=== PATIENT | female | born 1950 | race Caucasian/White ===

== ENCOUNTER 2018-02-01 20:14 | Observation (INO) | payer MEDICARE, OTHER ==
--- NOTE | 2018-02-01 20:51 | CT ---
CT OF THE BRAIN WITHOUT CONTRAST: 02/01/18 INDICATION: Syncopal episode. COMPARISON: Prior exam dated 04/08/15. FINDINGS: There is moderate chronic small vessel white matter ischemic change which is stable. Septum pellucidu m and third ventricle are midline. No acute infarct, hemorrhage, or hydrocephalus is present. Mastoid air cell and paranasal sinuses are clear. IMPRESSION: No acute intracranial abnormality. POS: [facility]
--- NOTE | 2018-02-01 21:00 | RAD ---
CHEST ONE VIEW 02/01/18 INDICATION: Syncopal episode. COMPARISON: None. FINDINGS: Lungs are hyperinflated with interstitial prominence likely related to changes of underlying COPD. He art size is within normal limits. No pleural effusion or pneumothorax is evident. IMPRESSION: COPD changes. No definite acute abnormality. POS: [facility]
[2018-02-01 21:23] LABS: #Basophils 0.1 thou/uL (0.0-0.2); #Monocytes 0.5 thou/uL (0.11-0.59); #Neutrophils 5.9 thou/uL (1.40-6.50); %Basophils 0.8 % (0.0-1.0); %Eosinophils 0.6 % (0.0-10.0); %Lymphocytes 12.8 % (21.0-51.0); %Neutrophils 79.7 % (42.0-75.0); Hemoglobin 15.8 g/dL (12.0-16.0); Mean Corpuscular HGB CONC 33.7 g/dL (32.0-36.0); Mean Corpuscular Hemoglobin 34.2 pg (27.0-31.0); Mean Platelet Volume 7.2 fL (7.4-10.4); Platelet Count 215 thou/uL (130-400); RBC Distribution Width 12.2 % (11.5-14.5); Red Blood Cell (RBC) Count 4.63 mill/uL (4.20-5.40); White Blood Cell (WBC) Count 7.4 thou/uL (4.8-10.8)
[2018-02-01 21:43] LABS: ALT (SGPT) Less than 7 U/L (8-55); AST (SGOT) 18 U/L (5-34); Albumin 4.1 g/dL (3.4-4.8); Alcohol 36 mg/dL (Less than 10); Alkaline Phosphatase 82 U/L (40-150); Anion Gap 11 mmol/L (10-20); BUN (Urea Nitrogen) 15 mg/dL (9.8-20.1); Bilirubin, Total 0.4 mg/dL (0.2-1.2); CK (CPK) 53 U/L (29-168); Calc. Creatinine Clearance 0 mL/min (70-130); Calcium 9.6 mg/dL (7.8-10.44); Carbon Dioxide 26 mmol/L (23-31); Chloride 104 mmol/L (98-107); Estimated GFR-MDRD 73; Globulin 2.8 g/dL (2.4-3.5); Glucose 84 mg/dL (80-115); Potassium 3.5 mmol/L (3.5-5.1); Protein, Total 6.9 g/dL (6.0-8.3); Sodium 137 mmol/L (136-145)
[2018-02-01 21:47] LABS: CKMB 1.7 ng/mL (0-6.6); Troponin I Less than 0.010 ng/mL (< 0.028)
[2018-02-01] MEDS ORDERED: Acetaminophen 325 MG TAB PO PRN (22:42)
[2018-02-01] MEDS ORDERED: Guaifenesin DM 100-10/5 ML UDCUP PO PRN (22:42)
[2018-02-01] MEDS ORDERED: Sodium Chloride 0.9% 1,000 ML IV SCH (22:45)
[2018-02-01 23:36] VITALS: BMI 27.1
[2018-02-02 00:36] LABS: Folate (Folic Acid) 8.6 ng/mL (7.0-31.4)
[2018-02-02 01:25] LABS: Troponin I Less than 0.010 ng/mL (< 0.028)
--- NOTE | 2018-02-02 04:11 | HP ---
REASON FOR ADMISSION: Syncope. HISTORY OF PRESENT ILLNESS: Please note, this history is obtained by patient's family at bedside who were with her in a restaurant when she passed out. The patient was eating her dinner. She suddenly felt weak and the next thing was her face was down on the table. The patient had lost consciousness for nearly two minutes. She started to wake up, but was still confused. Around 10 minutes or so later, the patient was fully awake, oriented, and started to ambulate. No complaints of chest pain, palpitations, PND, or orthopnea. No complaints of any specific weakness in any of the extremities. The patient felt a little queasiness in her stomach, but no diarrhea or urinary frequency or urgency. No history of fever. She has had a stress test done in 2013, which was normal per patient. PAST MEDICAL AND SURGICAL HISTORY: History of hypertension, hysterectomy, tonsillectomy. CURRENT MEDICATIONS: The patient is on Norvasc 5 mg daily, metoprolol 12.5 mg daily, aspirin 81 mg daily. ALLERGIES: No known drug allergies. PERSONAL HISTORY: Smokes one pack a day and has been doing so for the last 30 years. Does not abuse excessive alcohol or drugs. FAMILY HISTORY: Mother at the age of 83 years. She has had history of cardiac disease and stroke. Father of HI at the age of 72 years. She has had an older sister who has history of HI and stroke. CODE STATUS: FULL. This was discussed with patient at bedside. REVIEW OF SYSTEMS: The following complete review of systems was negative, unless otherwise mentioned in the HPI or below: Constitutional: Weight loss or gain, ability to conduct usual activities. Skin: Rash, itching. Eyes: Double vision, pain. ENT/Mouth: Nose bleeding, neck stiffness, pain, tenderness. Cardiovascular: Palpitations, dyspnea on exertion, orthopnea. Respiratory: Shortness of breath, wheezing, cough, hemoptysis, fever or night sweats. Gastrointestinal: Poor appetite, abdominal pain, heartburn, nausea, vomiting, constipation, or diarrhea. Genitourinary: Urgency, frequency, dysuria, nocturia. Musculoskeletal: Pain, swelling. Neurologic/Psychiatric: Anxiety, depression. Allergy/Immunologic: Skin rash, bleeding tendency. PHYSICAL EXAMINATION: GENERAL: The patient is a 67-year-old female who is currently not in any acute distress. VITAL SIGNS: Blood pressure 126/66, pulse 66 per minute, respiratory rate 18 per minute, saturating 97% on room air, temperature is 98.4 degrees Fahrenheit. NECK: Supple. No elevated JVD. HEENT: Eyes: Extraocular muscles intact. Pupils reacting to light. Oral cavity: Mucous membranes are dry. No exudates or congestion. CARDIOVASCULAR SYSTEM: S1, S2 heard. Regular rhythm. RESPIRATORY SYSTEM: Air entry 1+ bilateral. Scattered rhonchi plus no rales or wheezes. ABDOMEN: Soft, bowel sounds heard. No tenderness, rigidity, or guarding. EXTREMITIES: No peripheral edema or calf tenderness. VASCULAR SYSTEM: Peripheral pulses 1+ bilateral, no ischemic ulcerations or gangrene. CENTRAL NERVOUS SYSTEM: No gross focal deficits noted. Patient is alert, awake , oriented well. PSYCHIATRIC: The patient's mood is euthymic. No hallucinations or delusions. LABORATORY AND X-RAY FINDINGS: Chest x-ray done shows no acute infiltrate. There are changes of COPD seen. CT brain shows moderate chronic small vessel white matter ischemic changes, no acute infarct, hemorrhage, or hydrocephalus is seen. Electrolytes are stable. BUN 15, creatinine 0.7, serum glucose 84. Liver enzymes within normal limits. First set of cardiac enzymes are negative. Albumin is 4.1. Plasma alcohol is 36. White count of 7, H and H 15 and 46, platelet count 215, MCV is 101 with 79% neutrophils. EKG done shows normal sinus rhythm at 62 beats per minute. There is chronic RBBB seen. CLINICAL IMPRESSION AND PLAN: The patient will be under observation on telemetry for an episode of syncope, which was witnessed. This lasted for nearly two minutes. We will obtain orthostatic blood pressures. She will also be on normal saline at 80 mL per hour. We will place her on full-dose aspirin and small dose of Lopressor 12.5 mg twice daily. We will obtain Cardiolite stress test and family is wanting a carotid Doppler as well. Echo with 2D Doppler for LV function will be obtained and for valvular assessment as well. She currently has no neurologic deficits nor did she have any focal signs when the syncope happened. No witnessed seizures when this happened. [facility]
[2018-02-02 04:25] LABS: #Eosinphils 0.1 thou/uL (0.0-0.7); #Lymphocytes 1.9 thou/uL (1.20-3.40); #Monocytes 0.4 thou/uL (0.11-0.59); #Neutrophils 3.6 thou/uL (1.40-6.50); %Basophils 0.7 % (0.0-1.0); %Eosinophils 0.9 % (0.0-10.0); %Lymphocytes 32.3 % (21.0-51.0); %Monocytes 6.6 % (0.0-10.0); %Neutrophils 59.6 % (42.0-75.0); Hemoglobin 15.3 g/dL (12.0-16.0); Mean Corpuscular HGB CONC 33.6 g/dL (32.0-36.0); Mean Corpuscular Hemoglobin 33.9 pg (27.0-31.0); Mean Platelet Volume 7.6 fL (7.4-10.4); Platelet Count 213 thou/uL (130-400); RBC Distribution Width 12.1 % (11.5-14.5); Red Blood Cell (RBC) Count 4.52 mill/uL (4.20-5.40)
[2018-02-02 04:55] LABS: Anion Gap 12 mmol/L (10-20); BUN (Urea Nitrogen) 15 mg/dL (9.8-20.1); Calc. Creatinine Clearance 100 mL/min (70-130); Calcium 9.3 mg/dL (7.8-10.44); Carbon Dioxide 24 mmol/L (23-31); Cardiac Risk 3.7 (Less than 4.5); Chloride 107 mmol/L (98-107); Cholesterol 184 mg/dl (< 200 Desired); Estimated GFR-MDRD 89; Glucose 106 mg/dL (80-115); HDL Cholesterol 50 mg/dL (>60 Neg Risk); LDL Cholesterol, Calculated 117 mg/dL; Potassium 4.1 mmol/L (3.5-5.1); Sodium 139 mmol/L (136-145); Triglycerides 83 mg/dL (Less than 150)
[2018-02-02 04:57] LABS: Troponin I Less than 0.010 ng/mL (< 0.028)
[2018-02-02] MEDS: Metoprolol Tartrate 25 MG TAB PO SCH ×2 (08:29→20:22)
[2018-02-02] MEDS: Cyanocobalamin (Vitamin B-12) 1,000 MCG TAB PO SCH (08:31)
[2018-02-02] MEDS: Folic Acid 1 MG TAB PO SCH (08:31)
[2018-02-02] MEDS: Famotidine 20 MG TAB PO SCH ×2 (08:31→20:22)
[2018-02-02] MEDS: Enoxaparin Sodium 40 MG/0.4 ML SYRINGE SC SCH (08:33)
[2018-02-02] MEDS ORDERED: Aspirin 325 MG TAB PO SCH (09:00)
--- NOTE | 2018-02-02 10:17 | ULT ---
CAROTID ULTRASOUND WITH CAMARGO SCALE AND DOPPLER DUPLEX COLOR FLOW IMAGING SPECTRAL ANALYSIS PERFORMED: CLINICAL INDICATION: Syncope. FINDINGS: There is scattered, mild, atherosclerotic calcification of the carotid arteries, some of which is allyssa cified. PEAK SYSTOLIC VELOCITY (CM/S): Right CCA 76 Left CCA 84 Right ICA 70 Left ICA 64 There is antegrade bilateral flow within the visualized bilateral vertebral arteries. IMPRESSION: 1. No hemodynamically significant stenosis of the right internal carotid artery. 2. No hemodynamically significant stenosis of the left internal carotid artery. POS: [facility]
--- NOTE | 2018-02-02 15:57 | PDOC.PN ---
- Subjective Encounter Start Date: 02/02/18 Encounter Start Time: 09:30 -: f/u for syncope, examined, awaiting tests -: Reports she feels okay today - Objective Resuscitation Status: Resuscitation Status FULL:Full Resuscitation Vital Signs & Weight: Vital Signs (12 hours) Temp Pulse Resp BP BP BP BP 02/02/18 07:48 98 F 64 20 141/69 H 142/72 H 165/72 H 02/02/18 04:38 98.2 F 68 14 126/71 Pulse Ox 02/02/18 07:48 93 L 02/02/18 04:38 93 L Weight Weight 76.317 kg I&O: 02/01/18 02/02/18 02/03/18 06:59 06:59 06:59 Intake Total 342 Output Total 700 Balance -358 Result Diagrams: 02/02/18 03:31 02/02/18 03:31 Phys Exam - Physical Examination HEENT: PERRLA, moist MMs Neck: no nodes, no JVD, full ROM Respiratory: no wheezing, clear to auscultation bilateral Cardiovascular: RRR, no significant murmur Gastrointestinal: soft, non-tender Musculoskeletal: no edema, pulses present Neurological: non-focal, normal sensation Lymphatic: no nodes Psychiatric: normal affect, A&O x 3 Skin: no rash, normal turgor Dx/Plan (1) Syncope and collapse Code(s): R55 - SYNCOPE AND COLLAPSE Status: Acute (2) Hypertension Code(s): I10 - ESSENTIAL (PRIMARY) HYPERTENSION Status: Chronic - Plan cont current plan of care -: Stress neg was neg, Echo has been done, awaiting results -: Consulted EP about a possible loop recorder -: Will await their recommendations, repeat labs, cont to monitor patient * .
--- NOTE | 2018-02-02 15:58 | NM ---
RADIONUCLIDE STRESS REST MYOCARDIAL PERFUSION SCAN WITH CT ATTENUATION CORRECTION AND SPECT IMAGING LEFT VENTRICULAR WALL MOTION EVALUATION AND EJECTION FRACTION: HISTORY: Chest pain. FINDINGS: Chase protocol. Total test time 7:06. Homogeneous uptake of radiotracer throughout the left ventricular myocardium. No focal perfusion def ect or significant reversibility. QGS analysis of gated SPECT images shows no focal wall motion abno rmalities. TID=0.8. LHR=25%. Ejection fraction calculated at 78%. IMPRESSION: Normal myocardial perfusion scan. Normal left ventricular ejection fraction. POS: [facility]
--- NOTE | 2018-02-02 16:43 | PDOC.EVN ---
Event Note - Event Note Event Note: case discussed with Cole Herrera HEARING SPECIALIST, concur with management
--- NOTE | 2018-02-02 21:16 | CON ---
DATE OF CONSULTATION: 02/02/2018 ELECTROPHYSIOLOGY CONSULTATION REFERRING PHYSICIAN: Dr. Howard. REASON FOR REFERRAL: Syncope and collapse of unknown etiology. HISTORY OF PRESENT ILLNESS: Ms. Bazan is a very pleasant 67-year-old woman, who was brought to [facility] for evaluation after having a syncopal episode. She was at a [employer] restaurant, ea ting dinner with her family. She had eaten a substantial dinner, she was drinking a cayetano, which she regularly has one cayetano every week. She began to feel somewhat dizzy and lightheaded with k ind of an abnormal sensation. She started drinking a little bit of coffee and at that point promptly passed out, was face down in her food. Her was next to her and reports that she had looked pale and a little bit sweaty before she passed out. She was out for at least a 2-3 minutes before sh e woke up. She was somewhat confused for the first couple minutes after waking up and then had some nausea. She went to the restroom and had a bowel movement at that time. EMS then arrived and tree t her to the emergency room for further evaluation. Since being admitted to observation, she has bee n on telemetry which reveals sinus rhythm with a chronic right bundle branch block. She has no other substantial past medical history other than hypertension. There has been testing performed, stress test is normal, carotid Doppler is normal. An echocardiogram has been performed with results pending . She has never had an episode like this in the past. She is concerned for repeat episodes. Currently, Ms. Bazan is feeling well. She denies any heart racing, palpitations, chest pain, press ure, recurrent syncope, recurrent dizziness or heart failure symptoms. She denies any recent viral o r GI bugs surrounding her syncopal episode. She did have nausea and a bowel movement immediately fol lowing her syncopal episode, but this is a solitary event. REVIEW OF SYSTEMS: Twelve-point review of systems was conducted and is negative except that listed a harpal in the HPI. PAST MEDICAL HISTORY: Hypertension. PAST SURGICAL HISTORY: 1. Hysterectomy. 2. Tonsillectomy. ALLERGIES: No known drug allergies. HOME MEDICATIONS: Include Norvasc 5 mg daily, metoprolol 12.5 mg daily as well as aspirin 81 mg naye y. FAMILY HISTORY: Positive for coronary artery disease and stroke. Her mother at the age of 83 in her sleep. Her father from myocardial infarction at the age of 72. Her sister has had coronary artery disease as well as strokes. SOCIAL HISTORY: Negative for tobacco or illicit drug use. She is . She is independent with her ADLs. She drinks one cayetano a week. OBJECTIVE: VITAL SIGNS: Temperature 97.6, pulse 63, blood pressure 134/76, respirations 16, oxygen is 97% on ro om air. GENERAL: This is a well-appearing, well-groomed, middle-aged woman, in no apparent distress. Speech is clear. Affect is appropriate. She is a good historian. She is somewhat anxious. NECK: Supple without jugular venous distention. Thyroid is nonpalpable. LUNGS: Her lungs are clear to auscultation bilaterally. CARDIOVASCULAR: Heart rate is irregularly irregular. PMI is nondisplaced. There is no obvious murm ur, rub or gallop with a crisp S1, S2. ABDOMEN: Soft, nontender without palpable masses. Hepatojugular reflex is negative. NEUROLOGIC: Grossly intact and nonfocal. EXTREMITIES: Warm and dry to touch without clubbing, cyanosis or edema. DATABASE: 1. Telemetry and EKG were all personally reviewed, which would reflect sinus rhythm with underlying and chronic right bundle branch block, QRS duration is 138 milliseconds. 2. Two-dimensional transthoracic echocardiogram pending. 3. Nuclear stress test normal with an ejection fraction calculated at 78%. 4. Carotid Doppler negative for significant stenosis of bilateral ICAs. LABORATORY DATA: Hematology is unremarkable. Chemistries: Potassium 3.5 on arrival, currently 4.1; creatinine is 0.7; otherwise unremarkable. Serial troponins were negative. IMPRESSION: 1. Syncope and collapse, unknown etiology. 2. Hypertension. RECOMMENDATIONS AND PLAN: A lengthy discussion was had with Ms. Bazan and her regarding sy ncope and possible causes. At this point, she has had a normal stress test to help rule out ischemia . Her carotid arteries are clear. Echocardiogram is pending, but ejection fraction by stress test r eveals an EF of 78%. No obvious cause was then identified. We discussed the possibility of abnormal cardiac arrhythmias including ventricular tachycardia which is unlikely with a structurally normal h eart and preserved ejection fraction in addition to pauses or conduction blocks. We discussed possib le monitoring options including an extended external monitor which could be sent to her and worn for 2-4 weeks following her hospitalization. Since this is a solitary event, it is unlikely in that katheryn toring in the next 2-4 weeks would capture anything. Recommendation is for an implantable loop recor say for long-term monitoring for cardiac arrhythmias and potential cardiac causes for her syncope. A lternatively, this could be a vasovagal syncope event as she did have some nausea and a bowel movemen t immediately following when she regained consciousness with some associated diaphoresis. We recomme nd a loop recorder implantation to rule out cardiac etiology, whether syncope and collapse. Thank you for allowing us to participate in the care of this patient. We will arrange for a loop rec order implant tomorrow at the earliest convenience.
[2018-02-03] MEDS ORDERED: Alendronate Sodium 70 mg Tablet PO SCH (07:30)
[2018-02-03 08:06] VITALS: TEMP 98.6
[2018-02-03] MEDS: Folic Acid 1 MG TAB PO SCH (08:21)
[2018-02-03] MEDS: Cyanocobalamin (Vitamin B-12) 1,000 MCG TAB PO SCH (08:21)
[2018-02-03] MEDS: Famotidine 20 MG TAB PO SCH (08:21)
[2018-02-03] MEDS: Enoxaparin Sodium 40 MG/0.4 ML SYRINGE SC SCH (08:25)
[2018-02-03] MEDS ORDERED: Amlodipine 5 MG TAB PO SCH (09:00)
[2018-02-03] MEDS ORDERED: Metoprolol Tartrate 25 MG TAB PO SCH (09:00)
[2018-02-03] MEDS ORDERED: Lidocaine 1% w/Epinephrine 1:100K 30 ML VIAL ONE (11:51)
--- NOTE | 2018-02-03 13:04 | OP ---
DATE OF PROCEDURE: 02/03/2018 PROCEDURE: Loop recorder insertion. SURGEON: Dr. Isra Tobias REFERRING PHYSICIAN: Dr. Howard REASON FOR PROCEDURE: Ms. Bazan is a pleasant 67-year-old woman with prior history of hypertension , smoking, family history of coronary artery disease who is here for a loop recorder implant after a syncopal spell. PROCEDURE: The left cardiac area was prepped and draped, anesthetized using subcutaneous lidocaine, the 4th intercostal space incision was made with a standard [employer] LINQ insertion tool kit. A sta [employer] LINQ monitor was inserted without difficulty. Dermabond was used to close the incisi on. CONCLUSION: Successful LINQ recorder implant. PLAN: Routine monitoring.
[2018-02-03 13:05] VITALS: BP 133/64
--- NOTE | 2018-02-04 00:14 | DIS ---
DATE OF ADMISSION: 02/01/2018 DATE OF DISCHARGE: 02/03/2018 TRANSFER CARE SUMMARY PRIMARY CARE PHYSICIAN: Jesus Alberto Fry MD BRIM SETTER: Isra Tobias MD PROCEDURES: The patient had a carotid Doppler exam, which showed no hemodynamically significant stenosis for either the left or the right internal carotid artery. The patient also had an echocardiogram that showed an ejection fraction of 55%-60%, grade I/III diastolic dysfunction, [id number] mitral regurgitation, mild tricuspid regurgitation, mild tricuspid regurgitation, and right ventricular systolic pressure estimated at 38. The patient also had a stress test via the Chase protocol. Ejection fraction was calculated at 78%. Normal myocardial perfusion scan, normal left ventricular ejection fraction. HOSPITAL COURSE: Ms. Bazan was admitted after she had a syncopal episode while she was eating at a [employer]. Reports that she was eating with her family; had eaten a good substantial meal; was drinking one cayetano, which she reports she does every week. Reports that she felt somewhat dizzy, did not really feel well, got lightheaded, ordered a cup of coffee. Reports that she was about correction done with her cup of coffee and then the next thing she remembers is her waking her up. Her reports that she was out for 2-3 minutes, had looked pale, and a little sweaty before she passed out on the table. He reports that she was somewhat confused for the first several minutes after he was able to wake her up and she reports some nausea. She also reports that she went to the restroom after this and had a large bowel movement at that time. EMS had arrived and brought her to the emergency room for further evaluation. She was admitted to observation. Has been on telemetry, which has revealed a sinus rhythm with a chronic right bundle branch block. She has no other substantial past medical history other than hypertension. She had a stress test, an echocardiogram, negative carotid Doppler which did not explain a reason for the syncope. She was concerned for repeat episodes. We asked for a consultation from Dr. Tobias, who recommended that she have a loop recorder implanted to help them diagnose any underlying issues, as she has never had this type of episode before. She has a significant family history of cardiovascular issues. Both sides of her family positive for coronary artery disease and stroke. Her mother had at the age of 83 and had several heart attacks and strokes. Her father with an LA at the age of 72. She has a sister who is 2 years older than her that has severe coronary artery disease and has had multiple strokes. While she was on the Observation Unit, she denied any complaints. She agreed to the loop recorder, which was implanted on the day of discharge. She was anxious to be discharged home. She was instructed to follow up with her primary care doctor within the next week and follow up with Dr. Tobias in the next 3-4 weeks. DISCHARGE MEDICATIONS: The patient was continued on her home medication, which includes alendronate sodium 70 mg p.o. q.7 days, Norvasc 5 mg p.o. daily, aspirin 81 mg p.o. daily, Lopressor 25 mg p.o. daily. ALLERGIES: No known drug allergies. REVIEW OF SYSTEMS: The patient had a 12-point review of systems prior to discharge and was negative. PHYSICAL EXAMINATION: VITAL SIGNS: Temperature 98, pulse 64, respirations 16, blood pressure 139/70, 93% on room air. GENERAL: A 67-year-old female who is currently not in any distress. Denies any complaints. She is alert and oriented x3. NECK: Supple with no elevated JVD. HEENT: Extraocular muscles are intact. Pupils are reactive to light. Mucous membranes are moist. CARDIOVASCULAR SYSTEM: S1, S2 was heard. Regular rhythm. RESPIRATORY SYSTEM: Clear to auscultation bilaterally. ABDOMEN: Soft. Bowel sounds are heard. No tenderness on palpation. EXTREMITIES: 5+5/5 strength in all 4 extremities. No edema noted in lower extremities. NEUROLOGIC: No focal deficits are noted. The patient is alert and oriented to person, place, and time. PSYCHIATRIC: The patient has a normal affect. DISPOSITION: Condition is stable. The patient will be discharged to home. The patient should follow up with Dr. Fry within the next week, should also make an appointment to follow up with Dr. Tobias in 3-4 weeks. [facility]
== END 2018-02-03 13:03 | disposition home or self-care (01) ==
LOC: ERS 20:14 → 2SW 21:16
PROVIDERS: ADMIT Internal Medicine; ATTEND Internal Medicine
PROC: 0JH632Z Insertion of Monitoring Device into Chest Subcutaneous Tissue and Fascia, Percutaneous Approach (ICD-10-PCS; principal; 2018-02-03)
DX: R55 Syncope and collapse (principal); F17.210 Nicotine dependence, cigarettes, uncomplicated; I08.1 Rheumatic disorders of both mitral and tricuspid valves; I10 Essential (primary) hypertension; Z79.82 Long term (current) use of aspirin; Z79.899 Other long term (current) drug therapy
CPT/HCPCS: 33282; 70450; 71045; 78452; 80048; 80053; 80061; 80307; 82550; 82553; 82607; 82746; 84484 ×3; 85025 ×2; 93005; 93017; 93306; 93880; 94760; 96360; 96361; 97139 ×2; 99285; 99406; A9500; C1764; G0378 ×2; 36415; J1650; J2001

== ENCOUNTER 2018-03-23 10:37 | Day surgery (SDC) | payer MEDICARE ==
[2018-03-22 17:25] VITALS: BMI 26.6
[2018-03-23] MEDS ORDERED: Lidocaine 1% (PF) 30 ML VIAL ONE (11:27)
[2018-03-23 12:20] LABS: #Basophils 0.1 thou/uL (0.0-0.2); #Lymphocytes 1.5 thou/uL (1.20-3.40); #Monocytes 0.4 thou/uL (0.11-0.59); #Neutrophils 3.1 thou/uL (1.40-6.50); %Basophils 1.7 % (0.0-1.0); %Eosinophils 0.5 % (0.0-10.0); %Lymphocytes 29.8 % (21.0-51.0); Hemoglobin 16.7 g/dL (12.0-16.0); Mean Corpuscular HGB CONC 34.4 g/dL (32.0-36.0); Mean Corpuscular Volume 98.9 fL (78.0-98.0); Mean Platelet Volume 7.5 fL (7.4-10.4); Platelet Count 199 thou/uL (130-400); RBC Distribution Width 12.2 % (11.5-14.5); White Blood Cell (WBC) Count 5.2 thou/uL (4.8-10.8)
--- NOTE | 2018-03-23 21:42 | OP ---
DATE OF PROCEDURE: 03/23/2018 LOOP RECORDER EXPLANT REPORT REASON FOR PROCEDURE: Ms. Bazan is a 68-year-old female with structurally normal heart, but prior syncope episode. She has underwent loop recorder implant about 6 weeks ago, suboptimal healing of the loop recorder implant is seen with externalization of the loop recorder edge is noted. She was started on Keflex antibiotic yesterday and she is here for loop recorder explant program. DESCRIPTION OF PROCEDURE: The patient received no sedation. The loop recorder area was observed. Appears to be not significantly inflamed, but externalization of the loop recorder site was noted, it was stopped. After lidocaine analgesia, standard prep and drape, the loop recorder was extracted with simple traction. The area was cleaned with a bacitracin solution and irrigation was also performed. The wound was closed with Steri-Strips and Tegaderm/gauze dressing was applied. CONCLUSION: Successful loop recorder implant. PLAN: 1. Continue monitoring for now without loop recorder implant at the patient's preference. 2. Continue antibiotic for a week as prescribed. 3. Wound check in 2 weeks. Job ID: [id number]
== END 2018-03-23 12:35 | disposition home or self-care (01) ==
LOC: SDC 10:37
PROVIDERS: ATTEND Internal Medicine Cardiovascular Disease
PROC: 0JPT32Z Removal of Monitoring Device from Trunk Subcutaneous Tissue and Fascia, Percutaneous Approach (ICD-10-PCS; principal; 2018-03-23)
DX: T82.528A Displacement of other cardiac and vascular devices and implants, initial encounter (principal); Z79.82 Long term (current) use of aspirin; Z79.83 Long term (current) use of bisphosphonates; Z79.899 Other long term (current) drug therapy
CPT/HCPCS: 33284; 85025; J2001; J3490

== ENCOUNTER 2023-10-11 12:04 | Outpatient (CLI) | payer MEDICARE | END 2023-10-11 12:05 | disposition home or self-care (01) | LOC: MRI 12:04 | PROVIDERS: ATTEND Orthopaedic Surgery | DX: M79.89 Other specified soft tissue disorders (principal) | CPT/HCPCS: 82565 ==